=== PATIENT | female | born 1970 | race Caucasian/White ===

== ENCOUNTER 2018-05-28 04:45 | Emergency (ER) | payer OTHER ==
[~2018-05-28] VITALS: Ht 154.9 cm; Wt 69.4 kg
[~2018-05-28 04:45] MED LIST: LEVO0.124 PO
--- NOTE | 2018-05-28 04:45 | NUR ---
PT [facility] BLS. TAKEN TO BED 7
[2018-05-28 04:51] VITALS: BP 148/83
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
[2018-05-28] MEDS ORDERED: KETOROLAC 60 MG/2 ML VIAL IM ONE (04:55)
--- NOTE | 2018-05-28 05:23 | NUR ---
X-Ray at bedside.
[2018-05-28 05:45] VITALS: BP 148/83
--- NOTE | 2018-05-28 05:45 | NUR ---
Patient discharged with v/s stable. Written and verbal after care instructions given and explained. Patient alert, oriented and verbalized understanding of instructions. Ambulatory with steady gait. All questions addressed prior to discharge. ID band removed. Patient advised to follow up with PMD. Rx of MOTRIN AND ROBAXIN were given. Patient educated on indication of medication including possible reaction and side effects. Opportunity to ask questions provided and answered.
== END 2018-05-28 05:45 | disposition home or self-care (01) ==
LOC: MED 04:45
DX: R07.89 Other chest pain (principal); M54.6 Pain in thoracic spine; E07.9 Disorder of thyroid, unspecified; Z79.899 Other long term (current) drug therapy
CPT/HCPCS: 71045; 93005; 96372; 99283; J1885; Q0092